=== PATIENT | male | born 1960 | race Caucasian/White ===

== ENCOUNTER 2017-08-05 18:42 | Emergency (ER) | payer OTHER ==
[2017-08-05] MEDS ORDERED: ACETAMINOPHEN 325 MG TABLET PO ONE (18:49)
--- NOTE | 2017-08-05 20:36 | ER Document Report ---
ED General - General Chief Complaint: General Weakness Stated Complaint: BODY WEAKNESS Time Seen by Provider: 08/05/17 20:36 Mode of Arrival: Ambulatory Information source: Patient Notes: 57 yo smoker, non drugs, BPH (TURP 3 yrs ago) anxiety, 2 spon pneumo, rosacea, tachycardia at night- takes beta kenia male got sick on sunday with fever at night up to 102.9 tonight, myalgias, fatique, weakness, nightsweats. During day feels ok. Throat feels swollen sore, not bad now. had mono few months ago. Recently moved here 1 week ago from [place]. Daily beer, LFT and US were OK. No travel outside country, no tickbite, no rash. ROS: all over headache , no chest pain, cough or SOB, No n/v/d/. 2 nights ago had abdominal pain periumbilical, no UTI sx, no genitalia or perineal pain. TRAVEL OUTSIDE OF THE [place] IN LAST 30 DAYS: No - Related Data Allergies/Adverse Reactions: No Known Allergies Allergy (Verified 08/05/17 18:49) Past Medical History - General Information source: Patient - Social History Smoking Status: Current Every Day Smoker Frequency of alcohol use: Heavy Drug Abuse: None Lives with: Spouse/Significant other Family History: Reviewed & Not Pertinent - Medical History Notes: see above Pulmonary Medical History: Reports: Other - 2 spo pneumothorax Renal/ Medical History: Reports: Other - BPH. Denies: Hx Peritoneal Dialysis Infectious Medical History: Denies: Hx HIV Past Surgical History: Reports: Other - TURP, chest tube Review of Systems - Review of Systems Constitutional: See HPI EENT: See HPI Cardiovascular: No symptoms reported Respiratory: No symptoms reported Gastrointestinal: No symptoms reported Genitourinary: No symptoms reported Male Genitourinary: No symptoms reported Musculoskeletal: No symptoms reported Skin: No symptoms reported Hematologic/Lymphatic: No symptoms reported Neurological/Psychological: No symptoms reported Physical Exam - Vital signs Vitals: Temp Pulse Resp Pulse Ox 102.9 F H 87 16 98 08/05/17 18:47 08/05/17 18:47 08/05/17 18:47 08/05/17 18:47 Interpretation: Normal - General General appearance: Appears well, Alert In distress: None - HEENT Head: Normocephalic, Atraumatic Eyes: Normal Conjunctiva: Normal Pupils: PERRL Mucous membranes: Normal Pharynx: Erythema - mild Neck: Lymphadenopathy - anterior bilateral smalol, Supple - Respiratory Respiratory status: No respiratory distress Chest status: Nontender Breath sounds: Normal Chest palpation: Normal - Cardiovascular Rhythm: Regular Heart sounds: Normal auscultation Murmur: No - Abdominal Inspection: Normal Distension: No distension Bowel sounds: Normal Tenderness: Nontender. No: Tender Organomegaly: No organomegaly - Back Back: Normal, Nontender. No: CVA tenderness - Extremities General upper extremity: Normal inspection, Nontender, Normal color, Normal ROM , Normal temperature General lower extremity: Normal inspection, Nontender, Normal color, Normal ROM , Normal temperature, Normal weight bearing. No: Sherif's sign - Neurological Neuro grossly intact: Yes Cognition: Normal Orientation: AAOx4 Richa Coma Scale Eye Opening: Spontaneous [place] Coma Scale Verbal: Oriented [place] Coma Scale Motor: Obeys Commands Rich[place] Coma Scale Total: 15 Speech: Normal Motor strength normal: LUE, RUE, LLE, RLE Sensory: Normal - Psychological Associated symptoms: Normal affect, Normal mood - Skin Skin Temperature: Warm Skin Moisture: Dry Skin Color: Normal Skin irregularity: negative: Rash Course - Re-evaluation Re-evalutation: 08/05/17 23:[address] liu as the workup is negative for bacterial infection, source of infection. He rec. tx with doxycyline. pt already takes 1 per day for rosacea, will increase to bid pending cx results and give him FP follow up 08/05/17 23:31 - Vital Signs Vital signs: Temp Pulse Resp BP Pulse Ox 98.8 F 87 17 123/77 95 08/05/17 22:28 08/05/17 18:47 08/05/17 23:01 08/05/17 23:01 08/05/17 23:01 - Laboratory Result Diagrams: 08/05/17 21:22 08/05/17 21:22 Laboratory results interpreted by me: 08/05/17 08/05/17 08/05/17 21:22 21:22 22:32 Monocytes % 14.0 H Sodium 136.9 L Total Protein 6.0 L Urine Blood SMALL H Discharge - Discharge Clinical Impression: Sore throat Fever Qualifiers: Fever type: unspecified Qualified Code(s): R50.9 - Fever, unspecified Condition: Good Disposition: HOME, SELF-CARE
[2017-08-05 21:41] LABS: ABSOLUTE BASOPHILS # (AUTO) 0.1 10^3/uL (0.0-0.2); ABSOLUTE EOSINOPHILS # (AUTO) 0.1 10^3/uL (0.0-0.6); ABSOLUTE LYMPHOCYTES (AUTO) 1.5 10^3/uL (0.5-4.7); ABSOLUTE MONOCYTES (AUTO) 1.4 10^3/uL (0.1-1.4); ABSOLUTE NEUT (AUTO) 7.1 10^3/uL (1.7-8.2); BASOPHILS % (AUTO) 0.9 % (0-2); EOSINOPHILS % (AUTO) 0.8 % (0-6); HEMATOCRIT 43.4 % (37.9-51.0); HEMOGLOBIN 15.4 g/dL (13.5-17.0); HGB HCT DIFFERENCE 2.8; LYMPHOCYTES % (AUTO) 14.4 % (13-45); MEAN CORPUSCULAR HEMOGLOBIN 33.4 pg (27.0-33.4); MEAN CORPUSCULAR HGB CONC 35.6 g/dL (32.0-36.0); MEAN CORPUSCULAR VOLUME 94 fl (80-97); RED BLOOD COUNT 4.62 10^6/uL (4.35-5.55); RED CELL DISTRIBUTION WIDTH 12.6 % (11.5-14.0); SEGMENTED NEUTROPHILS % (AUTO) 69.9 % (42-78); WHITE BLOOD COUNT 10.1 10^3/uL (4.0-10.5)
[2017-08-05 21:54] LABS: ALANINE AMINOTRANSFERASE 26 U/L (21-72); ALBUMIN 3.6 g/dL (3.5-5.0); ALKALINE PHOSPHATASE 55 U/L (38-126); ANION GAP 8 (5-19); ASPARTATE AMINO TRANSFERASE 17 U/L (17-59); BILIRUBIN,DIRECT 0.4 mg/dL (0.0-0.4); BILIRUBIN,TOTAL 0.7 mg/dL (0.2-1.3); BLOOD UREA NITROGEN 9 mg/dL (7-20); CALCIUM 9.2 mg/dL (8.4-10.2); CARBON DIOXIDE 23 mmol/L (22-30); CHLORIDE 106 mmol/L (98-107); CREATININE RESULT 0.79 mg/dL (0.52-1.25); GLUCOSE 105 mg/dL (75-110); POTASSIUM 4.1 mmol/L (3.6-5.0); SODIUM 136.9 mmol/L (137-145)
--- NOTE | 2017-08-05 21:59 | RADIOLOGY REPORT (SQ) ---
EXAM DESCRIPTION: CHEST PA/LAT COMPLETED DATE/TIME: 08/05/2017 9:46 pm REASON FOR STUDY: fever COMPARISON: None. EXAM PARAMETERS: NUMBER OF VIEWS: two views TECHNIQUE: Digital Frontal and Lateral radiographic views of the chest acquired. RADIATION DOSE: NA LIMITATIONS: none FINDINGS: LUNGS AND PLEURA: No opacities, masses or pneumothorax. No pleural effusion. MEDIASTINUM AND HILAR STRUCTURES: No masses or contour abnormalities. HEART AND VASCULAR STRUCTURES: Heart normal size. No evidence for failure. BONES: No acute findings. HARDWARE: None in the chest. OTHER: No other significant finding. IMPRESSION: NO SIGNIFICANT RADIOGRAPHIC FINDING IN THE CHEST. TECHNICAL DOCUMENTATION: JOB ID: [id number] [employer] All Rights Reserved
[2017-08-05 22:54] LABS: APPEARANCE,URINE CLEAR; BILIRUBIN,URINE NEGATIVE (NEGATIVE); GLUCOSE, URINE NEGATIVE (NEGATIVE); KETONES,URINE NEGATIVE (NEGATIVE); LEUKOCYTE ESTERASE,URINE NEGATIVE (NEGATIVE); NITRITE,URINE NEGATIVE (NEGATIVE); PROTEIN,URINE NEGATIVE (NEGATIVE); URINE SPECIFIC GRAVITY 1.008; UROBILINOGEN,URINE NEGATIVE mg/dL (<2.0)
[2017-08-05 23:07] VITALS: BP 123/77
== END 2017-08-06 00:15 | disposition home or self-care (01) ==
LOC: ER 18:42
DX: J02.9 Acute pharyngitis, unspecified (principal); R50.9 Fever, unspecified; R53.1 Weakness; L71.9 Rosacea, unspecified; F17.200 Nicotine dependence, unspecified, uncomplicated
CPT/HCPCS: 36415; 71020; 80053; 81001; 83605; 85025; 86308; 87040; 87070; 87077; 87086; 87880; 99283

== ENCOUNTER 2019-08-28 18:40 | Emergency (ER) | payer BC, OTHER ==
--- NOTE | 2019-08-28 18:59 | ER Document Report ---
ED Medical Screen (RME) - General Stated Complaint: RIGHT KNEE PAIN Time Seen by Provider: 08/28/19 18:55 Mode of Arrival: Ambulatory Information source: Patient Notes: This 59-year-old male presents emergency department with right knee pain for months. He reports he hurt it a couple months ago has been wearing a brace. He reports he bent down yesterday without the pad and now has severe knee pain anterior. Denies past medical history of injury to the knee. Reports he has been taking 800 mg Motrin for the pain without relief. I have greeted and performed a rapid initial assessment of this patient. A comprehensive ED assessment and evaluation of the patient, analysis of test results and completion of the medical decision making process will be conducted by additional ED providers. Dictation of this chart was performed using voice recognition software; therefore, there may be some unintended grammatical errors. TRAVEL OUTSIDE OF THE [place] IN LAST 30 DAYS: No - Related Data Allergies/Adverse Reactions: No Known Allergies Allergy (Verified 08/05/17 18:49) Past Medical History Renal/ Medical History: Denies: Hx Peritoneal Dialysis Infectious Medical History: Denies: Hx HIV Past Surgical History: Reports: Other - TURP, chest tube
[2019-08-28 19:00] VITALS: BP 151/72
--- NOTE | 2019-08-28 19:44 | RADIOLOGY REPORT (SQ) ---
EXAM DESCRIPTION: KNEE RIGHT 4 VIEWS COMPLETED DATE/TIME: 08/28/2019 7:29 pm REASON FOR STUDY: KNEE PAIN COMPARISON: None. NUMBER OF VIEWS: Four views. TECHNIQUE: AP, lateral, and both oblique radiographic images acquired of the right knee. LIMITATIONS: None. FINDINGS: MINERALIZATION: Normal. BONES: No acute fracture or dislocation. No worrisome bone lesions. JOINT: No effusion. SOFT TISSUES: No soft tissue swelling. No radio-opaque foreign body. OTHER: No other significant finding. IMPRESSION: NEGATIVE STUDY OF THE RIGHT KNEE. NO RADIOGRAPHIC EVIDENCE OF ACUTE INJURY. TECHNICAL DOCUMENTATION: JOB ID: [id number] [employer]- All Rights Reserved Reading location - IP/workstation name: [email or web address]
--- NOTE | 2019-08-28 20:32 | ER Document Report ---
ED Extremity Problem, Lower - General Chief Complaint: Knee Pain Stated Complaint: RIGHT KNEE PAIN Time Seen by Provider: 08/28/19 18:55 Primary Care Provider: EAN BOYD PA-C [Primary Care Provider] - Follow up in 1 week JORGE BOWLES MD [ACTIVE STAFF] - Follow up as needed MARLON VILLARREAL JR, DO [ACTIVE PROVISIONAL STAFF] - Follow up in 1 week Mode of Arrival: Ambulatory TRAVEL OUTSIDE OF THE [place] IN LAST 30 DAYS: No - HPI Notes: 59-year-old male to the emergency department with complaints of right knee pain that is been ongoing for the past 2 to 3 months. He states that the pain comes and goes. He states that he first noticed it when he was kneeling down about 2 months ago. He states that he felt like maybe he knelt down onto something and then he is noticed some swelling to the anterior portion of his knee over the patella. He states that that swelling has continued but the pain comes and goes and he has been mainly able to tolerate it with the use of 800 mg Motrin. He states however yesterday he was going to kneel down at work and he missed his kneeling pad. He states that when his knee made contact with the floor he had excruciating pain to the patella and to the lateral aspect of the knee joint. He states he took 8 mg Motrin and still continued to have pain. He states that he is not had any fevers or chills, progressively worsening swelling of the knee, redness to the knee. He does not use IV drugs. He has not seen an orthopedist for his knee pain. He denies any other complaints. He states he currently has no pain in the knee. - Related Data Allergies/Adverse Reactions: No Known Allergies Allergy (Verified 08/05/17 18:49) Past Medical History - General Information source: Patient - Social History Smoking Status: Current Every Day Smoker Chew tobacco use (# tins/day): No Frequency of alcohol use: Occasional Drug Abuse: None Family History: Reviewed & Not Pertinent Patient has suicidal ideation: No Patient has homicidal ideation: No Renal/ Medical History: Denies: Hx Peritoneal Dialysis Infectious Medical History: Denies: Hx HIV Past Surgical History: Reports: Other - TURP, chest tube Review of Systems - Review of Systems Constitutional: denies: Chills, Fever EENT: No symptoms reported Cardiovascular: denies: Chest pain, Palpitations, Heart racing, Orthopnea, Dyspnea, Syncope, Dizziness, Lightheaded Respiratory: denies: Cough, Short of breath Gastrointestinal: denies: Abdominal pain, Diarrhea, Nausea, Vomiting Musculoskeletal: See HPI, Joint pain Skin: No symptoms reported Neurological/Psychological: No symptoms reported -: Yes All other systems reviewed and negative Physical Exam - Vital signs Vitals: Temp Pulse Resp BP Pulse Ox 98.3 F 64 20 151/72 H 99 08/28/19 18:53 08/28/19 18:53 08/28/19 18:53 08/28/19 18:53 08/28/19 18:53 Interpretation: Normal - General General appearance: Appears well, Alert - HEENT Head: Normocephalic, Atraumatic Eyes: Normal Pupils: PERRL - Respiratory Respiratory status: No respiratory distress Chest status: Nontender Breath sounds: Normal Chest palpation: Normal - Cardiovascular Rhythm: Regular Heart sounds: Normal auscultation Murmur: No - Abdominal Inspection: Normal Distension: No distension Bowel sounds: Normal Tenderness: Nontender Organomegaly: No organomegaly - Extremities Knee: Other - there is no TTP over thr right knee joint. There is no significant effusion. Overlying the patella, there appears to a mobile cyst like structure. patient cam ambulate without difficulty. FROM in BLE against resistance with 5/5 strength in flexion and extesion against resistance - Neurological Neuro grossly intact: Yes Cognition: Normal Orientation: AAOx4 Richa Coma Scale Eye Opening: Spontaneous [place] Coma Scale Verbal: Oriented [place] Coma Scale Motor: Obeys Commands [place] Coma Scale Total: 15 Speech: Normal Motor strength normal: LUE, RUE, LLE, RLE Sensory: Normal - Psychological Associated symptoms: Normal affect, Normal mood - Skin Skin Temperature: Warm Skin Moisture: Dry Skin Color: Normal Course - Re-evaluation Re-evalutation: Knee X-Ray 08/28/19 18:58 IMPRESSION: NEGATIVE STUDY OF THE RIGHT KNEE. NO RADIOGRAPHIC EVIDENCE OF ACUTE INJURY. - Vital Signs Vital signs: Temp Pulse Resp BP Pulse Ox 98.3 F 64 20 151/72 H 99 08/28/19 18:53 08/28/19 18:53 08/28/19 18:53 08/28/19 18:53 08/28/19 18:53 Discharge - Discharge Clinical Impression: Right knee pain, Knee joint cyst, right Condition: Stable Disposition: HOME, SELF-CARE Additional Instructions: FOLLOW UP WITH ORTHOPEDIST WITHOUT FAIL. RETURN IF WORSENING PAIN. Prescriptions: Lidocaine HCl See Protocol TP BID #50 oint..gm. Referrals: EAN BOYD PA-C [Primary Care Provider] - Follow up in 1 week JORGE BOWLES MD [ACTIVE STAFF] - Follow up as needed MARLON VILLARREAL JR, DO [ACTIVE PROVISIONAL STAFF] - Follow up in 1 week
== END 2019-08-28 21:00 | disposition home or self-care (01) ==
LOC: ER 18:40
DX: M25.861 Other specified joint disorders, right knee (principal); M25.561 Pain in right knee; M79.89 Other specified soft tissue disorders; F17.200 Nicotine dependence, unspecified, uncomplicated
CPT/HCPCS: 99283

== ENCOUNTER → 2019-09-20 | Outpatient (CLI) | payer BC ==
--- NOTE | 2019-09-20 10:11 | RADIOLOGY REPORT (SQ) ---
EXAM DESCRIPTION: CHEST PA/LATERAL COMPLETED DATE/TIME: 09/20/2019 9:52 am REASON FOR STUDY: ESSENTIAL (PRIMARY) HYPERTENSION Z01.812 ENCOUNTER FOR PREPROCEDURAL LABORATORY E XAMINATION F17.200 NICOTINE DEPENDENCE, UNSPECIFIED, UNCOMPLICATED M70.41 PREPATELLAR BURSITIS, RIG HT KNEE COMPARISON: 2016 NUMBER OF VIEWS: Two view. TECHNIQUE: Frontal and lateral radiographic views of the chest acquired. LIMITATIONS: None. FINDINGS: LUNGS AND PLEURA: No opacities, masses or pneumothorax. No pleural effusion. Attenuated bl ood vessels and flattened tatiana-diaphragms. MEDIASTINUM AND HILAR STRUCTURES: No masses. No contour abnormalities. HEART AND VASCULAR STRUCTURES: Heart normal in size and contour. No evidence for failure. BONES: No acute findings. HARDWARE: None in the chest. OTHER: No other significant finding. IMPRESSION: COPD. NO ACUTE RADIOGRAPHIC FINDING IN THE CHEST. TECHNICAL DOCUMENTATION: JOB ID: [id number] [employer]- All Rights Reserved Reading location - IP/workstation name: [email or web address]
[2019-09-20 11:23] LABS: ABSOLUTE BASOPHILS # (AUTO) 0.1 10^3/uL (0.0-0.2); ABSOLUTE EOSINOPHILS # (AUTO) 0.1 10^3/uL (0.0-0.6); ABSOLUTE LYMPHOCYTES (AUTO) 2.5 10^3/uL (0.5-4.7); ABSOLUTE MONOCYTES (AUTO) 0.9 10^3/uL (0.1-1.4); ABSOLUTE NEUT (AUTO) 5.1 10^3/uL (1.7-8.2); BASOPHILS % (AUTO) 0.7 % (0-2); EOSINOPHILS % (AUTO) 1.7 % (0-6); HEMATOCRIT 46.5 % (37.9-51.0); HEMOGLOBIN 16.3 g/dL (13.5-17.0); LYMPHOCYTES % (AUTO) 28.8 % (13-45); MEAN CORPUSCULAR HEMOGLOBIN 33.1 pg (27.0-33.4); MEAN CORPUSCULAR HGB CONC 35.1 g/dL (32.0-36.0); MEAN CORPUSCULAR VOLUME 94 fl (80-97); MONOCYTES % (AUTO) 10.4 % (3-13); PLATELET COUNT 171 10^3/uL (150-450); RED BLOOD COUNT 4.93 10^6/uL (4.35-5.55); RED CELL DISTRIBUTION WIDTH 12.6 % (11.5-14.0); SEGMENTED NEUTROPHILS % (AUTO) 58.4 % (42-78); TOTAL CELLS COUNTED % (AUTO) 100 %; WHITE BLOOD COUNT 8.7 10^3/uL (4.0-10.5)
[2019-09-20 11:41] LABS: ANION GAP 10 (5-19); BLOOD UREA NITROGEN 13 mg/dL (7-20); CALCIUM 9.4 mg/dL (8.4-10.2); CARBON DIOXIDE 26 mmol/L (22-30); CHLORIDE 101 mmol/L (98-107); GLUCOSE 76 mg/dL (75-110); POTASSIUM 4.8 mmol/L (3.6-5.0)
--- NOTE | 2019-09-20 14:43 | EKG REPORT ---
SEVERITY:- ABNORMAL ECG - SINUS RHYTHM LEFT VENTRICULAR HYPERTROPHY : Confirmed by: Sergio Lee MD 20-Sep-2019 14:43:01
== END ==
LOC: OD 09:16
PROVIDERS: ATTEND Orthopaedic Surgery
DX: Z01.810 Encounter for preprocedural cardiovascular examination (principal); Z01.811 Encounter for preprocedural respiratory examination; Z01.812 Encounter for preprocedural laboratory examination; M70.41 Prepatellar bursitis, right knee; I10 Essential (primary) hypertension; F17.200 Nicotine dependence, unspecified, uncomplicated; J44.9 Chronic obstructive pulmonary disease, unspecified
CPT/HCPCS: 36415; 71046; 80048; 85025; 93005; 93010